=== PATIENT | female | born 1985 | race Caucasian/White ===

== ENCOUNTER 2021-11-20 22:35 | Inpatient (IN) | payer OTHER ==
[2021-11-21] MEDS ORDERED: AMPICILLIN - 2 GM in SODIUM CHLORIDE 100 ML IVPB ONE
[2021-11-21] MEDS ORDERED: AMPICILLIN SODIUM 2 GM VIAL ONE (00:04)
[2021-11-21] MEDS: DEXTROSE 5%-LACTATED RINGERS 1,000 ML IV SCH ×3 (00:10→18:00)
[2021-11-21 00:23] VITALS: BMI 34.2
[2021-11-21 00:44] LABS: INR 0.93 (0.83-1.09); PROTHROMBIN TIME (PATIENT) 10.7 SEC (9.7-13.0)
[2021-11-21 00:47] LABS: ACTIVATED PTT 25.9 SECONDS (25.2-36.5)
[2021-11-21 00:53] LABS: CALCIUM 9.1 mg/dL (8.5-10.1)
[2021-11-21 00:54] LABS: ALBUMIN 2.5 g/dl (3.4-5.0); BLOOD UREA NITROGEN 9.9 mg/dL (7-18)
[2021-11-21 00:57] LABS: CREATININE 0.7 mg/dL (0.55-1.3)
[2021-11-21 00:58] LABS: BILIRUBIN,TOTAL 0.2 mg/dL (0.2-1)
[2021-11-21 00:59] LABS: TOT PROT 6.5 g/dl (6.4-8.2)
[2021-11-21 01:02] LABS: BASO % 0.4 % (0-2.0); EOS % 1.8 % (0-4.5); HEMATOCRIT 34.4 % (32.4-45.2); HEMOGLOBIN 11.7 GM/dL (10.7-15.3); LYMPH % 18.2 % (8-40); MCH 28.6 pg (25.7-33.7); MEAN CELL VOLUME 84.1 fl (80-96); MEAN PLT VOLUME 11.2 fl (7.5-11.1); MONO % 3.9 % (3.8-10.2); NEUT % 75.7 % (42.8-82.8); PLATELET COUNT 107 10^3/uL (134-434); RDW 14.5 % (11.6-15.6); WHITE BLOOD COUNT 8.8 K/mm3 (4.0-10.0)
[2021-11-21 01:18] LABS: SYPHILIS W/ RPR CONF NON-REACTIVE (NONREACTIVE)
[2021-11-21 01:19] LABS: HEPATITIS B SURFACE AG MATERN NON-REACTIVE (NONREACTIVE)
[2021-11-21 01:31] LABS: EPI CELLS 27 /uL (0-25.1); HYALINE CASTS 1 /uL (0-3.1); PH,URINE 6.5 (5.0-8.0); URINE APPEARANCE CLOUDY; URINE BACTERIA 41 /uL (0-1359); URINE BILIRUBIN NEGATIVE (NEGATIVE); URINE COLOR YELLOW; URINE GLUCOSE (UA) NEGATIVE (NEGATIVE); URINE KETONE NEGATIVE (NEGATIVE); URINE LEUK ESTERASE NEGATIVE (NEGATIVE); URINE NITRITE NEGATIVE (NEGATIVE); URINE PROTEIN NEGATIVE (NEGATIVE); URINE UROBILINOGEN 0.2 mg/dL (0.2-1.0); URINE WBC 9 /uL (0-25.8)
[2021-11-21 01:48] LABS: HIV INTERPRETATION NEGATIVE (NEGATIVE)
[2021-11-21] MEDS ORDERED: AMPICILLIN SODIUM 1 GM VIAL ONE ×5 (04:05→19:58)
[2021-11-21] MEDS: AMPICILLIN - 1 GM in SODIUM CHLORIDE 100 ML IVPB SCH ×5 (04:06→20:00)
[2021-11-21] MEDS: LEVOTHYROXINE NA 112 MCG TABLET (FP) PO SCH (06:35)
[2021-11-21] MEDS ORDERED: OXYTOCIN 30 UNITS in 0.9% NS 30 UNIT/500 ML INFUS.BAG IVPB SCH (07:15)
[2021-11-21 07:16] LABS: URINE RBC 200.8 /uL (0-23.9)
[2021-11-21] MEDS ORDERED: OXYTOCIN 30 UNITS in 0.9% NS 30 UNIT/500 ML INFUS.BAG IVPB ONE (07:49)
[2021-11-21] MEDS ORDERED: BUTORPHANOL TARTRATE 2 MG/ML VIAL IVPB ONE (17:26)
[2021-11-21] MEDS ORDERED: PROMETHAZINE HCL 25 MG/1 ML VIAL IVPB ONE (17:26)
[2021-11-21] MEDS ORDERED: BUTORPHANOL TARTRATE 2 MG/ML VIAL ONE (17:29)
[2021-11-21] MEDS ORDERED: PROMETHAZINE HCL 25 MG/1 ML VIAL ONE (17:29)
[2021-11-21 17:55] LABS: BASO % 0.5 % (0-2.0); HEMATOCRIT 33.2 % (32.4-45.2); HEMOGLOBIN 11.4 GM/dL (10.7-15.3); LYMPH % 13.4 % (8-40); MCH 28.9 pg (25.7-33.7); MCHC 34.4 g/dl (32.0-36.0); MONO % 3.2 % (3.8-10.2); NEUT % 81.9 % (42.8-82.8); PLATELET COUNT 108 10^3/uL (134-434); RBC 3.95 M/mm3 (3.60-5.2); RDW 14.7 % (11.6-15.6); WHITE BLOOD COUNT 10.1 K/mm3 (4.0-10.0)
[2021-11-21] MEDS ORDERED: FENTANYL/BUPIVACAINE/NS/PF - PCEA - 50 ML DISP.SYRIN EP ONE (20:18)
[2021-11-21] MEDS: ELECTROLYTE-148 SOLN 1,000 ML IV SCH (20:20)
[2021-11-21] MEDS: FENTANYL/BUPIVACAINE/NS/PF - PCEA - 50 ML DISP.SYRIN EP SCH (21:00)
[2021-11-21] MEDS ORDERED: NALOXONE HCL 0.4 MG/ML VIAL IVPUSH PRN (21:05)
[2021-11-22] MEDS ORDERED: AMPICILLIN SODIUM 1 GM VIAL ONE ×2 (00:06→03:58)
[2021-11-22] MEDS: AMPICILLIN - 1 GM in SODIUM CHLORIDE 100 ML IVPB SCH ×3 (00:10→11:55)
[2021-11-22] MEDS: DEXTROSE 5%-LACTATED RINGERS 1,000 ML IV SCH (00:18)
[2021-11-22] MEDS ORDERED: OXYTOCIN 20 UNITS in 0.9% NS 20 UNIT/1,000 ML INFUS.BAG IV ONE (01:07)
[2021-11-22] MEDS ORDERED: FENTANYL/BUPIVACAINE/NS/PF - PCEA - 50 ML DISP.SYRIN EP ONE (01:14)
[2021-11-22] MEDS: FENTANYL/BUPIVACAINE/NS/PF - PCEA - 50 ML DISP.SYRIN EP SCH (01:15)
[2021-11-22] MEDS: ELECTROLYTE-148 SOLN 1,000 ML IV SCH (02:00)
[2021-11-22 05:43] LABS: CORD BASE EXCESS -4.3 mmol/L (0-2); CORD HCO3 21.3 mmHg (20-29); CORD PCO2 41.1 mmHg (30-78); CORD pH 7.333 (7.14-7.44)
[2021-11-22] MEDS ORDERED: oxyCODONE HCL 5 MG TABLET PO PRN (05:44)
[2021-11-22] MEDS ORDERED: BENZOCAINE 20% 57 GM BOTTLE TP PRN (05:44)
[2021-11-22] MEDS ORDERED: BENZOCAINE 28 GM HEMORRHOIDAL OINTMENT TP PRN (05:44)
[2021-11-22] MEDS ORDERED: WITCH HAZEL 50% (TUCKS) 40 PAD/JAR PAD TP PRN (05:44)
[2021-11-22] MEDS ORDERED: METHYLERGONOVINE MALEATE 0.2 MG/1 ML AMP IM PRN (05:44)
[2021-11-22] MEDS ORDERED: BISACODYL 10 MG SUPP.RECT RC PRN (05:44)
[2021-11-22 05:45] LABS: CORD HCO3 24.3 mmHg (20-29)
[2021-11-22] MEDS ORDERED: OXYTOCIN 20 UNITS in 0.9% NS 20 UNIT/1,000 ML INFUS.BAG IV SCH (05:45)
[2021-11-22] MEDS ORDERED: IBUPROFEN 600 MG TABLET (FP) PO ONE (06:30)
[2021-11-22] MEDS: ACETAMINOPHEN 325 MG TABLET (FP) PO PRN (06:30)
[2021-11-22] MEDS: LEVOTHYROXINE NA 112 MCG TABLET (FP) PO SCH (08:17)
[2021-11-22] MEDS: PRENATAL VITAMINS W/ FOLIC ACID TABLET (FP) PO SCH (10:54)
[2021-11-22] MEDS: IBUPROFEN 600 MG TABLET (FP) PO PRN ×2 (13:20→18:41)
[2021-11-23] MEDS: IBUPROFEN 600 MG TABLET (FP) PO PRN ×3 (05:58→20:34)
[2021-11-23] MEDS: LEVOTHYROXINE NA 112 MCG TABLET (FP) PO SCH (06:33)
[2021-11-23 07:06] LABS: BASO % 0.6 % (0-2.0); HEMATOCRIT 26.5 % (32.4-45.2); HEMOGLOBIN 9.1 GM/dL (10.7-15.3); LYMPH % 16.7 % (8-40); MCHC 34.3 g/dl (32.0-36.0); MEAN CELL VOLUME 84.5 fl (80-96); MEAN PLT VOLUME 10.1 fl (7.5-11.1); MONO % 3.3 % (3.8-10.2); NEUT % 77.4 % (42.8-82.8); PLATELET COUNT 82 10^3/uL (134-434); RBC 3.14 M/mm3 (3.60-5.2); RDW 14.8 % (11.6-15.6); WHITE BLOOD COUNT 8.7 K/mm3 (4.0-10.0)
[2021-11-23] MEDS: PRENATAL VITAMINS W/ FOLIC ACID TABLET (FP) PO SCH (10:08)
[2021-11-23 21:26] VITALS: BP 120/83; PULSE 98
[2021-11-23] MEDS ORDERED: SENNOSIDES/DOCUSATE COMBO (SENNA PLUS) TABLET (UD) PO PRN (22:00)
[2021-11-24] MEDS: LEVOTHYROXINE NA 112 MCG TABLET (FP) PO SCH (06:16)
[2021-11-24] MEDS: IBUPROFEN 600 MG TABLET (FP) PO PRN (06:19)
[2021-11-24] MEDS: ACETAMINOPHEN 325 MG TABLET (FP) PO PRN (07:45)
[2021-11-24] MEDS: PRENATAL VITAMINS W/ FOLIC ACID TABLET (FP) PO SCH (09:28)
[2021-11-24 10:56] VITALS: RESP 18; TEMP 97.7
== END 2021-11-24 12:40 | disposition home or self-care (01) | DRG 807 ==
LOC: JLDR 22:35 → J3W 11-22 08:17
PROVIDERS: ADMIT Obstetrics & Gynecology; ATTEND Obstetrics & Gynecology
PROC: 10E0XZZ Delivery of Products of Conception, External Approach (ICD-10-PCS; principal; 2021-11-22)
PROC: 0KQM0ZZ Repair Perineum Muscle, Open Approach (ICD-10-PCS; 2021-11-22)
DX: O42.02 Full-term premature rupture of membranes, onset of labor within 24 hours of rupture (principal); O99.284 Endocrine, nutritional and metabolic diseases complicating childbirth; O90.81 Anemia of the puerperium; O70.1 Second degree perineal laceration during delivery; Z3A.37 37 weeks gestation of pregnancy; Z37.0 Single live birth
CPT/HCPCS: 36415; 36600; 59409; 80053; 81003; 82803; 85025; 85610; 85730; 86762; 86780; 86850; 86900; 86901; 87340; 87389; C9803-CS; U0003; U0005